=== PATIENT | female | born 1970 | race Caucasian/White ===

== ENCOUNTER 2022-04-12 17:59 | Emergency (ER) | payer OTHER ==
[~2022-04-12] VITALS: Ht 154.9 cm; Wt 122.5 kg
--- NOTE | 2022-04-12 18:22 | NUR ---
BIBFAMILY "Been feeling weak x6days". AMBULATORY, AAOX4, BREATHING EVEN AND UNLABORED SATURATING AT 97%RA, COMPLAINS OF NECK AND BACK PAIN 8/10 PS
[2022-04-12] MEDS ORDERED: methylPREDNISolone SOD SUCC 125 MG/2ML VIAL IV ONE (19:00)
[2022-04-12] MEDS ORDERED: KETOROLAC TROMETHAMINE INJ 30 MG/ML VIAL IV ONE (19:00)
--- NOTE | 2022-04-12 19:05 | NUR ---
BLOOD DRAWN AND SENT TO LAB
[2022-04-12] MEDS ORDERED: methylPREDNISolone SOD SUCC 125 MG/2ML VIAL ONE (19:15)
[2022-04-12] MEDS ORDERED: KETOROLAC TROMETHAMINE 15 MG/ML VIAL ONE (19:15)
[2022-04-12 19:40] LABS: BILIRUBIN,URINE NEGATIVE (NEGATIVE); COLOR,URINE YELLOW (YELLOW); LEUKOCYTE ESTERASE ,URINE SMALL (NEGATIVE); NITRITE, URINE POSITIVE (NEGATIVE); PH,URINE 5.5 (5.0-8.0); PROTEIN,URINE NEGATIVE (NEGATIVE); UGLUCOSE NEGATIVE (NEGATIVE); UROBILINOGEN,URINE 0.2 EU/dL (0.2)
[2022-04-12 19:49] LABS: THYROID STIMULATING HORMONE 2.347 uIU/mL (0.358-3.74)
[2022-04-12 19:57] LABS: BASOPHILS % (AUTO) 0.2 % (0.0-2.0); EOSINOPHILS % (AUTO) 2.2 % (0.0-6.0); HEMATOCRIT 42 % (33-45); HEMOGLOBIN 13.9 g/dL (11.5-14.8); LYMPHOCYTES % (AUTO) 31.8 % (20.0-44.0); MEAN CORPUSCULAR HGB CONC 33 g/dl (31.0-36.0); MEAN CORPUSCULAR VOLUME 96 fL (82-100); MONOCYTES # (AUTO) 0.6 K/uL (0.1-1.30); MONOCYTES % (AUTO) 6.5 % (2.0-12.0); NEUTROPHILS # (AUTO) 5.5 K/uL (1.8-8.9); NEUTROPHILS % (AUTO) 59.3 % (43.0-81.0); PLATELET COUNT (AUTO) 281 K/uL (150-450); WHITE BLOOD COUNT (AUTO) 9.4 K/uL (4.3-11.0)
[2022-04-12 20:05] LABS: CALCIUM, SERUM 9.4 mg/dL (8.5-10.1); CARBON DIOXIDE 27 mmol/L (21-32); CHLORIDE 105 mmol/L (98-107); CREATININE 0.9 mg/dL (0.6-1.3); GLUCOSE 126 mg/dL (74-106); POTASSIUM 3.7 mmol/L (3.5-5.1); SODIUM SERUM 140 mmol/L (136-145); UREA NITROGEN, BLOOD 12 mg/dL (7-18)
[2022-04-12 20:13] LABS: ALANINE AMINOTRANSFERASE 24 U/L (12-78); ALBUMIN 3.5 g/dL (3.4-5.0); ALKALINE PHOSPHATASE 110 U/L (46-116); ASPARTATE AMINOTRANSFERASE 25 U/L (15-37); BILIRUBIN,DIRECT 0.1 mg/dL (0.0-0.2); BILIRUBIN,TOTAL 0.5 mg/dL (0.2-1.0); TOTAL PROTEIN, SERUM 8.3 g/dL (6.4-8.2)
[2022-04-12 20:25] LABS: RBC,URINE 51-80 /HPF (0-2)
[2022-04-12 20:26] LABS: BACTERIA,URINE 2+ /HPF (None Seen); WBC,URINE 21-50 /HPF (0-3)
[2022-04-12] MEDS ORDERED: KETO10TA2 PO (20:27)
[2022-04-12] MEDS ORDERED: PRED20TA PO (20:27)
[2022-04-12] MEDS ORDERED: ESCI5TAB PO (20:27)
[2022-04-12] MEDS ORDERED: LEVO200T8 PO (20:27)
[2022-04-12] MEDS ORDERED: HYDR200T4 PO (20:27)
--- NOTE | 2022-04-12 20:50 | NUR ---
IV removed. Catheter intact and site benign. Pressure and 4x4 applied to site. No bleeding noted.Patient discharged to home in stable condition. Written and verbal after care instructions given. Patient verbalizes understanding of instruction.
[2022-04-12 21:20] VITALS: BP 140/90
== END 2022-04-12 20:50 | disposition home or self-care (01) ==
LOC: ER 18:01
DX: M32.9 Systemic lupus erythematosus, unspecified (principal); F41.9 Anxiety disorder, unspecified; Z88.2 Allergy status to sulfonamides; Z79.899 Other long term (current) drug therapy
CPT/HCPCS: 99285; 70450; 96374; 71045; 96375; 93005; 74176; 85025; 80048; 87077; 87086; 80076; 83735; 87186; 81001; 36415; 84439; 84443; 84484; 83880; J2930; J1885